=== PATIENT | male | born 1960 | race Caucasian/White ===

== ENCOUNTER 2018-03-10 00:42 | Emergency (ER) | payer OTHER ==
[2018-03-10] MEDS ORDERED: LIDOCAINE 2% MPF 5 ML VIAL ONE (01:26)
--- NOTE | 2018-03-10 01:49 | EDPHYS ---
Physician Documentation [facility] Name: Kj Ortiz Sr Age: 57 yrs Sex: Male : 1960 Arrival Date: 03/10/2018 Time: 00:43 Bed 16 Private MD: ED Physician Santiago Loo HPI: 03/10 01:48 This 57 yrs old Male presents to ER via Ambulatory with complaints of jr8 Laceration To Hand. 01:48 The patient has a laceration related to: working, occurred at home. Onset: The jr8 symptoms/episode began/occurred acutely, today. Associated signs and symptoms: The patient has no apparent associated signs or symptoms. The patient has not experienced similar symptoms in the past. The patient has not recently seen a physician. Was working on motor and cut left hand. Historical: - Allergies: 01:06 No Known Allergies; ak1 - Home Meds: 01:06 [place] 10-325 mg Oral tab 1 tab every 6 hours [Active]; hydroxyzine HCl 50 mg Oral tab 1 ak1 tab 3 times daily [Active]; calcium 1000mg daily [Active]; omeprazole 60mg Oral [Active]; ranitidine HCl 75 mg Oral tab 1 tab once daily [Active]; gabapentin oral 1200 mg oral 3 times per day [Active]; Cymbalta 60 mg oral cpDR 1 cap twice daily [Active]; amitriptyline 150 mg Oral tab 1 tab once daily [Active]; trazodone 150 mg Oral tab 1 tab 2 times per day [Active]; diclofenac sodium 50 mg oral TbEC 1 tab 2 times per day [Active]; - PSHx: 01:06 back surgery x's 2; left shoulder; bilateral feet; bilateral hands; ak1 - Immunization history:: Adult Immunizations unknown, Last tetanus immunization: < 5 years ago. - Social history:: Smoking status: Patient uses tobacco products, smokes one-half pack cigarettes per day. - Ebola Screening: : No symptoms or risks identified at this time. ROS: 01:48 Eyes: Negative for injury, pain, redness, and discharge, ENT: Negative for injury, jr8 pain, and discharge, Neck: Negative for injury, pain, and swelling, Cardiovascular: Negative for chest pain, palpitations, and edema, Respiratory: Negative for shortness of breath, cough, wheezing, and pleuritic chest pain, Abdomen/GI: Negative for abdominal pain, nausea, vomiting, diarrhea, and constipation, Back: Negative for injury and pain, MS/Extremity: Negative for injury and deformity, Neuro: Negative for headache, weakness, numbness, tingling, and seizure. 01:48 Skin: Positive for laceration(s), of the left hand. Exam: 01:48 Cardiovascular: Regular rate and rhythm with a normal S1 and S2. No gallops, murmurs, jr8 or rubs. Normal PMI, no JVD. No pulse deficits. Respiratory: Lungs have equal breath sounds bilaterally, clear to auscultation and percussion. No rales, rhonchi or wheezes noted. No increased work of breathing, no retractions or nasal flaring. Back: No spinal tenderness. No costovertebral tenderness. Full range of motion. MS/ Extremity: Pulses equal, no cyanosis. Neurovascular intact. Full, normal range of motion. Neuro: Awake and alert, GCS 15, oriented to person, place, time, and situation. Cranial nerves II-XII grossly intact. Motor strength 5/5 in all extremities. Sensory grossly intact. Cerebellar exam normal. Normal gait. 01:48 Skin: injury, laceration(s), the wound is approximately 3 cm(s), with a depth of .5 cm(s), of the dorsal left hand, that can be described as irregular, with mild bleeding. Vital Signs: 00:57 BP 128 / 86; Pulse 102; Resp 18; Temp 98.2; Pulse Ox 95% on R/A; Weight 90.72 kg (R); ak1 Height 5 ft. 8 in. (172.72 cm); Pain 2/10; 00:57 Body Mass Index 30.41 (90.72 kg, 172.72 cm) ak1 Laceration: 01:48 Wound Repair of 3cm ( 1.2in ) subcutaneous laceration to left hand. Irregularly jr8 shaped.. Minimal bleeding noted.. Distal neuro/vascular/tendon intact. Anesthesia: Local anesthetic administered with 3 mls of 1% lidocaine. Wound prep: Extensive cleansing with betadine, Wound margin revised minimally, Wound explored extensively. Skin closed with 5 4-0 Prolene using interrupted sutures and sterile technique. Patient tolerated well. MDM: 01:04 Patient medically screened. jr8 01:48 Data reviewed: vital signs, nurses notes, and as a result, I will discharge patient. jr8 Data interpreted: Pulse oximetry: on room air is 95 %. Interpretation: normal. Counseling: I had a detailed discussion with the patient and/or guardian regarding: the historical points, exam findings, and any diagnostic results supporting the discharge/admit diagnosis, the need for outpatient follow up, a family practitioner, to return to the emergency department if symptoms worsen or persist or if there are any questions or concerns that arise at home. Administered Medications: No medications were administered Disposition: 07:01 Co-signature as Attending Physician, Santiago Loo MD I agree with the assessment and odell plan of care. Disposition: 03/10/18 01:48 Discharged to Home. Impression: Laceration without foreign body of left hand. - Condition is Stable. - Discharge Instructions: Laceration Care, Adult. - Medication Reconciliation Form, Thank You Letter, Antibiotic Education, Prescription Opioid Use form. - Follow up: Private Physician; When: 7 - 10 days; Reason: Wound Recheck, Recheck today's complaints, Continuance of care, Staple/Suture removal, Re-evaluation by your physician. - Problem is new. - Symptoms have improved. Signatures: Santiago Loo MD MD cha Roszak, Josh, PA PA jr8 Gretchen Haines RN RN ak1 Sukhdev Hilario RN RN rv Corrections: (The following items were deleted from the chart) 02:05 01:48 03/10/2018 01:48 Discharged to Home. Impression: Laceration without foreign body rv of left hand. Condition is Stable. Forms are Medication Reconciliation Form, Thank You Letter, Antibiotic Education, Prescription Opioid Use. Follow up: Private Physician; When: 7 - 10 days; Reason: Wound Recheck, Recheck today's complaints, Continuance of care, Staple/Suture removal, Re-evaluation by your physician. Problem is new. Symptoms have improved. jr8
--- NOTE | 2018-03-10 01:49 | ER ---
Nurse's Notes [facility] Name: Kj Ortiz Sr Age: 57 yrs Sex: Male : 1960 Arrival Date: 03/10/2018 Time: 00:43 Bed 16 Private MD: Diagnosis: Laceration without foreign body of left hand Presentation: 03/10 00:58 Presenting complaint: Patient states: lac to top of left hand at 0025 while working in [employer] shop. 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 bleeding controlled. Transition of care: patient was not received from another setting of care. Complicating Factors: There are no complicating factors for this patient. Onset of symptoms was March 10, 2018. Risk Assessment: Do you want to hurt yourself or someone else? Patient reports no desire to harm self or others. Initial Sepsis Screen: Does the patient meet any 2 criteria? No. Patient's initial sepsis screen is negative. Does the patient have a suspected source of infection? No. Patient's initial sepsis screen is negative. Care prior to arrival: None. 00:58 Method Of Arrival: Ambulatory ak1 00:58 Acuity: KRISTAN 4 ak1 Triage Assessment: 01:06 General: Appears in no apparent distress. Behavior is calm, cooperative. Pain: ak1 Complains of pain in left hand. EENT: No signs and/or symptoms were reported regarding the EENT system. Neuro: No deficits noted. Cardiovascular: No deficits noted. Respiratory: No deficits noted. GI: No signs and/or symptoms were reported involving the gastrointestinal system. : No signs and/or symptoms were reported regarding the genitourinary system. Derm: No signs and/or symptoms reported regarding the dermatologic system. Musculoskeletal: No signs and/or symptoms reported regarding the musculoskeletal system. Injury Description: Laceration sustained to left hand is jagged, 0.5 to 2.5 cm long, not bleeding, was sustained 1-2 hours ago. Historical: - Allergies: 01: No Known Allergies; ak1 - Home Meds: 01:06 [place] 10-325 mg Oral tab 1 tab every 6 hours [Active]; hydroxyzine HCl 50 mg Oral tab 1 ak1 tab 3 times daily [Active]; calcium 1000mg daily [Active]; omeprazole 60mg Oral [Active]; ranitidine HCl 75 mg Oral tab 1 tab once daily [Active]; gabapentin oral 1200 mg oral 3 times per day [Active]; Cymbalta 60 mg oral cpDR 1 cap twice daily [Active]; amitriptyline 150 mg Oral tab 1 tab once daily [Active]; trazodone 150 mg Oral tab 1 tab 2 times per day [Active]; diclofenac sodium 50 mg oral TbEC 1 tab 2 times per day [Active]; - PSHx: 01:06 back surgery x's 2; left shoulder; bilateral feet; bilateral hands; ak1 - Immunization history:: Adult Immunizations unknown, Last tetanus immunization: < 5 years ago. - Social history:: Smoking status: Patient uses tobacco products, smokes one-half pack cigarettes per day. - Ebola Screening: : No symptoms or risks identified at this time. Screenin:07 Abuse screen: Denies threats or abuse. Denies injuries from another. Nutritional ak1 screening: No deficits noted. Tuberculosis screening: No symptoms or risk factors identified. Fall Risk None identified. Assessment: 01:00 General: Appears in no apparent distress. comfortable, Behavior is calm, cooperative. rv Pain: Complains of pain in left hand. Neuro: Level of Consciousness is awake, alert, obeys commands, Oriented to person, place, time, situation. Cardiovascular: Capillary refill < 3 seconds. Respiratory: Airway is patent. GI: No signs and/or symptoms were reported involving the gastrointestinal system. : No signs and/or symptoms were reported regarding the genitourinary system. EENT: No signs and/or symptoms were reported regarding the EENT system. Derm: Wound noted left hand. 01:00 Injury Description: Laceration sustained to left hand. rv Vital Signs: 00:57 BP 128 / 86; Pulse 102; Resp 18; Temp 98.2; Pulse Ox 95% on R/A; Weight 90.72 kg (R); ak1 Height 5 ft. 8 in. (172.72 cm); Pain 2/10; 00:57 Body Mass Index 30.41 (90.72 kg, 172.72 cm) ak1 ED Course: 00:43 Patient arrived in ED. ds1 00:57 Arm band placed on Patient placed in an exam room, on a stretcher, Patient notified of ak1 wait time. 01:00 Triage completed. ak1 01:04 Michael Montoya PA is PHCP. jr8 01:04 Santiago Loo MD is Attending Physician. jr8 01:07 Patient has correct armband on for positive identification. ak1 02:03 Assist provider with laceration repair on left hand that was between 2.6 to 7.5 cm rv using sutures. Set up tray. Performed by Michael GOMEZ Dressed with 4X4s, Patient tolerated well. 02:04 Patient did not have IV access during this emergency room visit. rv Administered Medications: No medications were administered Outcome: 01:48 Discharge ordered by . jr8 02:04 Discharged to home ambulatory. rv 02:04 Condition: good 02:04 Discharge instructions given to patient, Instructed on discharge instructions, wound care. 02:05 Patient left the ED. rv Signatures: Yulisa Woody ds1 Michael Montoya PA PA jr8 Gretchen Haines, RN RN ak1 Sukhdev Hilario RN RN rv
[2018-03-10 02:56] VITALS: BP 128/86; TEMP 98.2; O2SAT 95
== END 2018-03-10 02:05 | disposition home or self-care (01) ==
LOC: ER 00:42
PROC: 0JQK0ZZ Repair Left Hand Subcutaneous Tissue and Fascia, Open Approach (ICD-10-PCS; principal; 2018-03-10)
DX: S61.412A Laceration without foreign body of left hand, initial encounter (principal); F17.210 Nicotine dependence, cigarettes, uncomplicated; W45.8XXA Other foreign body or object entering through skin, initial encounter; Y93.89 Activity, other specified; Y92.009 Unspecified place in unspecified non-institutional (private) residence as the place of occurrence of the external cause
CPT/HCPCS: 99283

== ENCOUNTER 2018-04-09 23:51 | Inpatient (IN) | payer OTHER ==
[2018-04-10] MEDS ORDERED: ALBUTEROL 2.5 MG/3 ML NEB SOL ONE ×2 (00:06→07:47)
[2018-04-10] MEDS ORDERED: NA CHLORIDE 0.9% 1,000 ML ONE (00:19)
[2018-04-10] MEDS ORDERED: FUROSEMIDE 40 MG/4 ML VIAL ONE (00:26)
[2018-04-10 00:30] LABS: Absolute Lymphocytes (CBC) 0.7 K/uL (0.7-4.9); Absolute Monocytes 0.6 K/uL (0.1-1.3); Basophils % 0.1 % (0-1.3); Eosinophils % 0.1 % (0-4.4); Hematocrit 38.6 % (39.6-49.0); Lymphocytes % 3.8 % (15.3-44.8); MCH 30.9 pg (27.0-35.0); MCV 91.1 fL (80-100); MPV 6.8 fL (7.6-11.3); Monocytes % 3.6 % (3.3-12.3); RBC Red Blood Cell Count 4.24 M/uL (4.33-5.43)
[2018-04-10 00:32] LABS: Protime INR 0.92
[2018-04-10 00:47] LABS: ALT/SGPT 24 U/L (12-78); AST/SGOT 31 U/L (15-37); Albumin 3.7 g/dL (3.4-5.0); Alkaline Phosphatase 52 U/L (45-117); Amylase Level 20 U/L (25-115); BUN Blood Urea Nitrogen 15 mg/dL (7-18); Bicarbonate 28 mmol/L (21-32); Bilirubin Direct < 0.1 mg/dL (0-0.2); Bilirubin Total 0.3 mg/dL (0.2-1.0); CKMB Creatine Kinase MB 2.8 ng/mL (0.3-3.6); Creatine Phosphokinase 211 U/L (39-308); Glucose Level 181 mg/dL (74-106); Lipase 72 U/L (73-393); Magnesium 2.1 mg/dL (1.8-2.4); NT PRO-BNP 241 pg/mL (<125); Protein, Total 7.1 g/dL (6.4-8.2); Sodium Level 141 mmol/L (136-145)
[2018-04-10 01:02] LABS: Arterial Blood Carboxyhemoglob 3.2 % (0-1.5); Blood Gas Oxyhemoglobin 87.5 % (94-97); Blood O2 Saturation 91.4 % (92-98.5)
[2018-04-10 01:40] LABS: Blood Morphology Comment NOT SEEN (NOT SEEN); Platelet Estimate ADEQ
[2018-04-10 01:41] LABS: Urine Blood TRACE (NEG); Urine Glucose TRACE (NEG); Urine Protein NEGATIVE (NEG); Urine Specific Gravity 1.015 (1.005-1.030)
[2018-04-10] MEDS ORDERED: ONDANSETRON 4 MG/2 ML VIAL ONE (01:52)
[2018-04-10] MEDS ORDERED: MORPHINE 4 MG/ML SYR ONE ×2 (01:52→05:53)
--- NOTE | 2018-04-10 03:05 | EDPHYS ---
Physician Documentation [facility] Name: Kj Ortiz Sr Age: 57 yrs Sex: Male : 1960 Arrival Date: 04/09/2018 Time: 23:52 Bed 3 Private MD: ED Physician Vazquez Penn HPI: 04/10 00:03 This 57 yrs old Male presents to ER via Ambulatory with complaints of pkl Breathing Difficulty. 00:03 The patient has shortness of breath at rest. Onset: The symptoms/episode began/occurred pkl just prior to arrival, 3 hour(s) ago. Patient had rotator cuff surgery right shoulder earlier this morning at [facility]. Historical: - Allergies: 00:07 No Known Allergies; ea 00:12 No Known Allergies; bb - Home Meds: 00:12 amitriptyline 150 mg Oral tab 1 tab once daily [Active]; diclofenac sodium 50 mg Oral bb TbEC 1 tab 2 times per day [Active]; docusate sodium 100 mg Oral tab 1 tab 2 times per day [Active]; duloxetine 60 mg oral cpDR 1 cap twice a day [Active]; gabapentin 1200 mg Oral 3 times per day [Active]; [place] 10-325 mg Oral tab 1 tab every 4 hours [Active]; hydroxyzine HCl 50 mg Oral tab 1 tab 3 times daily [Active]; lidocaine 5 % topical ptmd 1 patch twice a day [Active]; methocarbamol 750 mg Oral tab 1 tab four times a day [Active]; nicotine gum [Active]; omeprazole 20 mg oral TbEC daily [Active]; pravastatin 40 mg oral tab 1 tab once daily [Active]; psyllium oral oral [Active]; ranitidine HCl 150 mg oral tab 1 tab nightly [Active]; sildenafil 50 mg prior to intercourse oral tab [Active]; trazodone 150 mg Oral tab 1 tab nightly [Active]; - PMHx: 00:15 None; bp - PSHx: 00:07 back surgery x's 2; left shoulder; bilateral feet; bilateral hands; ea - Immunization history:: Adult Immunizations up to date. - Social history:: Smoking status: Patient uses tobacco products, pt reports smoking about 6 cigarettes per day. - Ebola Screening: : No symptoms or risks identified at this time. ROS: 00:03 Eyes: Negative for injury, pain, redness, and discharge, ENT: Negative for injury, pkl pain, and discharge, Neck: Negative for injury, pain, and swelling, Cardiovascular: Negative for chest pain, palpitations, and edema. 00:03 Respiratory: Positive for shortness of breath, at rest. 00:03 Abdomen/GI: Negative for abdominal pain, nausea, vomiting, and diarrhea. 00:03 Back: Negative for acute changes. 00:03 : Negative for urinary symptoms. 00:03 MS/extremity: Negative for acute changes. 00:03 Skin: Negative for rash. 00:03 Neuro: Negative for altered mental status. Exam: 00:03 Head/Face: Normocephalic, atraumatic. Eyes: Pupils equal round and reactive to light, pkl extra-ocular motions intact. Lids and lashes normal. Conjunctiva and sclera are non-icteric and not injected. Cornea within normal limits. Periorbital areas with no swelling, redness, or edema. ENT: Nares patent. No nasal discharge, no septal abnormalities noted. Tympanic membranes are normal and external auditory canals are clear. Oropharynx with no redness, swelling, or masses, exudates, or evidence of obstruction, uvula midline. Mucous membranes moist. Neck: Trachea midline, no thyromegaly or masses palpated, and no cervical lymphadenopathy. Supple, full range of motion without nuchal rigidity, or vertebral point tenderness. No Meningismus. Chest/axilla: Normal chest wall appearance and motion. Nontender with no deformity. No lesions are appreciated. Cardiovascular: Regular rate and rhythm with a normal S1 and S2. No gallops, murmurs, or rubs. Normal PMI, no JVD. No pulse deficits. 00:03 Respiratory: moderate respiratory distress is noted, Respirations: labored breathing, that is moderate, Breath sounds: rales, that are moderate, are scattered. 00:03 Abdomen/GI: Bowel sounds: normal, Palpation: abdomen is soft and non-tender, in all quadrants. 00:03 Back: Exam negative for acute changes. 00:03 : Exam negative for acute changes. 00:03 Musculoskeletal/extremity: Exam is negative for acute changes. 00:03 Skin: Exam negative for rash. 00:03 Neuro: Orientation: is normal, Mentation: is normal, Cranial nerves: grossly normal, Motor: is normal. Vital Signs: 00:00 Pulse Ox 74% on R/A; bb 00:05 BP 135 / 74; Pulse 121; Resp 26; Temp 98.7; Pulse Ox 99% on Non-rebreather mask; Weight ea 90.72 kg; Height 5 ft. 8 in. (172.72 cm); Pain 7/10; 02:13 BP 113 / 69; Pulse 100; Resp 18; Pulse Ox 93% on 40% BiPAP; ea 03:45 BP 119 / 74; Pulse 90; Resp 17; Pulse Ox 95% on 40% BiPAP; ea 04:12 BP 127 / 77; Pulse 18; Resp 89; Pulse Ox 94% on 40% BiPAP; ea 00:05 Body Mass Index 30.41 (90.72 kg, 172.72 cm) ea MDM: 04/09 23:59 Medical screening is not applicable. 04/10 03:01 Data reviewed: vital signs, nurses notes, lab test result(s), EKG, radiologic studies, pkl CT scan, plain films. 04/09 23:59 Order name: Amylase, Serum; Complete Time: 00:52 v 04/09 23:59 Order name: Blood Culture Adult (2) 04/09 23:59 Order name: BMP; Complete Time: 00:52 04/09 23:59 Order name: CBC with Diff; Complete Time: 01:41 04/09 23:59 Order name: Ckmb; Complete Time: 00:52 04/09 23:59 Order name: CPK; Complete Time: 00:52 04/09 23:59 Order name: D-Dimer; Complete Time: 00:46 04/09 23:59 Order name: Hepatic Function; Complete Time: 00:52 04/09 23:59 Order name: Lipase; Complete Time: 00:52 04/09 23:59 Order name: Magnesium; Complete Time: 00:52 04/09 23:59 Order name: NT PRO-BNP; Complete Time: 00:52 04/09 23:59 Order name: PT-INR; Complete Time: 00:46 04/09 23:59 Order name: Ptt, Activated; Complete Time: 00:46 v 04/09 23:59 Order name: Troponin (emerg Dept Use Only); Complete Time: 00:52 v 08/10 00:01 Order name: ABG; Complete Time: 01:06 pkl 10 00:02 Order name: XRAY CXR (1 view); Complete Time: 19:03 pkl 10 00:31 Order name: Manual Differential; Complete Time: 01:41 EDMS 04/10 00:47 Order name: CT Chest For PE Angio; Complete Time: 19:03 pkl 04/10 01:03 Order name: Urine Dipstick--Ancillary (enter results); Complete Time: 01:44 ms 10 01:42 Order name: Lactate; Complete Time: 03:05 pkl 04/10 01:42 Order name: Procalcitonin; Complete Time: 06:41 pkl 10 06:34 Order name: CBC with Automated Diff; Complete Time: 19:03 EDMS 10 06:46 Order name: Basic Metabolic Panel; Complete Time: 19:03 EDMS 04/10 06:49 Order name: Lactate Sepsis 2 HR Follow-up; Complete Time: 19:03 EDMS 10 06:55 Order name: ABG Arterial Blood Gas; Complete Time: 19:03 EDMS 10 07:37 Order name: Manual Differential; Complete Time: 19:03 EDMS 04/09 23:59 Order name: EKG; Complete Time: 00:01 kav 04/09 23:59 Order name: Cardiac monitoring; Complete Time: 00:24 kav 04/09 23:59 Order name: EKG - Nurse/Tech; Complete Time: 00:24 kav 04/09 23:59 Order name: IV Saline Lock; Complete Time: 00:24 kav 04/09 23:59 Order name: Labs collected and sent; Complete Time: 00:24 kav 04/09 23:59 Order name: O2 Per Protocol; Complete Time: 00:24 kav 04/09 23:59 Order name: O2 Sat Monitoring; Complete Time: 00:24 kav 04/09 23:59 Order name: Urine Dipstick-Ancillary (obtain specimen); Complete Time: 02:23 kav Administered Medications: 00:00 Drug: Albuterol 2.5 mg Route: Inhalation; bp 00:12 CANCELLED (Patient Refused): NS 0.9% 1000 ml IV at 1000 ml once pkl 00:20 Drug: Albuterol - atroVENT (3:1) (2.5 mg - 0.5 mg) 3 ml Route: Nebulizer; ea 00:35 Follow up: Response: No adverse reaction; No adverse reaction, pt reports some relief ea of symptoms 00:20 Drug: NS 0.9% 1000 ml Route: IV; Rate: 100 ml/hr; Site: left antecubital; ea 00:22 Follow up: IV Status: Order to discontinue infusion ea 00:23 Drug: Lasix 80 mg Route: IVP; Site: left antecubital; ea 00:45 Follow up: Urine output 650 ml; Response: No adverse reaction ea 01:56 Drug: morphine 2 mg Route: IVP; Site: left antecubital; ea 02:23 Follow up: Response: No adverse reaction; Pain is decreased ea 01:56 Drug: Zofran 4 mg Route: IVP; Site: left antecubital; ea 02:23 Follow up: Response: No adverse reaction; Pain is decreased ea Disposition: 03:01 Critical Care:. pkl Disposition: 04/10/18 03:04 Hospitalization ordered by Adriana Gloria for Inpatient Admission. Preliminary diagnosis is Acute dyspnea. Bilateral pneumonia. Hypoxia. S/P Right shoulder rotator cuff surgery. - Bed requested for Intensive Care Unit. - Status is Inpatient Admission. sv - Condition is Stable. - Problem is new. - Symptoms have improved. UTI on Admission? No Signatures: Dispatcher [employer] EDMS Milli Esteban RN RN kl Verde, Stephanie, RN RN sv Lam, Pin, MD MD pkl Vern, Katherine, LIAISON PLANNER LIAISON PLANNER Jennifer Dorado RN RN bb Antunez, Elena, RN RN ea Peltier, Brian RN RN bp Corrections: (The following items were deleted from the chart) 00:12 00:00 NS 0.9% 1000 ml IV at 1000 ml once ordered. jak pkmoises 03:27 03:04 Hospitalization Ordered by Adriana Gloria MD for Inpatient Admission. Preliminary pkl diagnosis is Acute dyspnea. Bilateral pneumonia. Hypoxia. S/P Right shoulder rotator cuff surgery. Bed requested for Telemetry/MedSurg (Inpatient). Status is Inpatient Admission. Condition is Stable. Problem is new. Symptoms have improved. UTI on Admission? No. pkl 06:23 03:27 04/10/2018 03:04 Hospitalization Ordered by Adriana Gloria MD for Inpatient kl Admission. Preliminary diagnosis is Acute dyspnea. Bilateral pneumonia. Hypoxia. S/P Right shoulder rotator cuff surgery. Bed requested for Intensive Care Unit. Status is Inpatient Admission. Condition is Stable. Problem is new. Symptoms have improved. UTI on Admission? No. pkl 08:18 06:23 04/10/2018 03:04 Hospitalization Ordered by Adriana Gloria MD for Inpatient sv Admission. Preliminary diagnosis is Acute dyspnea. Bilateral pneumonia. Hypoxia. S/P Right shoulder rotator cuff surgery. Bed requested for Intensive Care Unit. Status is Inpatient Admission. Condition is Stable. Problem is new. Symptoms have improved. UTI on Admission? No. kl
--- NOTE | 2018-04-10 03:05 | ER ---
Nurse's Notes [facility] Name: Kj Ortiz Sr Age: 57 yrs Sex: Male : 1960 Arrival Date: 04/09/2018 Time: 23:52 Bed 3 Private MD: Diagnosis: Acute dyspnea. Bilateral pneumonia. Hypoxia. S/P Right shoulder rotator cuff surgery Presentation: 04/10 00:00 Presenting complaint: Patient states: he had rotator cuff repair this morning at the [place] [facility] and is having shortness of breath. Transition of care: patient was not received from another setting of care. Onset of symptoms was April 10, 2018. Risk Assessment: Do you want to hurt yourself or someone else? Patient reports no desire to harm self or others. Initial Sepsis Screen: Does the patient meet any 2 criteria? No. Patient's initial sepsis screen is negative. Does the patient have a suspected source of infection? No. Patient's initial sepsis screen is negative. Care prior to arrival: None. 00:00 Method Of Arrival: Ambulatory bb 00:00 Acuity: KRISTAN 2 bb Triage Assessment: 00:07 General: Appears uncomfortable, Behavior is restless. Pain: Complains of pain in back, ea anterior aspect of left upper chest, left breast, anterior aspect of right shoulder and right knee. Neuro: Level of Consciousness is awake, alert, obeys commands, Oriented to person, place, time. Respiratory: Reports shortness of breath at rest Airway is patent Respiratory effort is even, unlabored, Respiratory pattern is regular, symmetrical, Breath sounds are diminished bilaterally. Onset: The symptoms/episode began/occurred Pt reports he felt short of breath after his surgery this AM, reports he was released and as the day progressed pt reports he started feeling more short of breath. , the patient has moderate shortness of breath. Derm: Skin is pink, warm \T\ dry. Historical: - Allergies: 00:07 No Known Allergies; ea 00:12 No Known Allergies; bb - Home Meds: 00:12 amitriptyline 150 mg Oral tab 1 tab once daily [Active]; diclofenac sodium 50 mg Oral bb TbEC 1 tab 2 times per day [Active]; docusate sodium 100 mg Oral tab 1 tab 2 times per day [Active]; duloxetine 60 mg oral cpDR 1 cap twice a day [Active]; gabapentin 1200 mg Oral 3 times per day [Active]; [place] 10-325 mg Oral tab 1 tab every 4 hours [Active]; hydroxyzine HCl 50 mg Oral tab 1 tab 3 times daily [Active]; lidocaine 5 % topical ptmd 1 patch twice a day [Active]; methocarbamol 750 mg Oral tab 1 tab four times a day [Active]; nicotine gum [Active]; omeprazole 20 mg oral TbEC daily [Active]; pravastatin 40 mg oral tab 1 tab once daily [Active]; psyllium oral oral [Active]; ranitidine HCl 150 mg oral tab 1 tab nightly [Active]; sildenafil 50 mg prior to intercourse oral tab [Active]; trazodone 150 mg Oral tab 1 tab nightly [Active]; - PMHx: 00:15 None; bp - PSHx: 00:07 back surgery x's 2; left shoulder; bilateral feet; bilateral hands; ea - Immunization history:: Adult Immunizations up to date. - Social history:: Smoking status: Patient uses tobacco products, pt reports smoking about 6 cigarettes per day. - Ebola Screening: : No symptoms or risks identified at this time. Screenin:25 Abuse screen: Denies threats or abuse. Nutritional screening: No deficits noted. ea Tuberculosis screening: No symptoms or risk factors identified. Fall Risk None identified. Assessment: 01:07 Reassessment: Pt taken to CT. ea 01:40 Reassessment: Patient and/or family updated on plan of care and expected duration. Pain ea level reassessed. Pt returned from CT. 01:45 Reassessment: Respiratory at bedside, pt respirations continued to be labored. v/o ea obtained to place pt on bipap, pt on bipap mask tolerating well Inspiratory pressure 14, expiratory pressure 7. Rate 12/40%. Pt O2 sat at 93%. 02:00 Reassessment: Patient and/or family updated on plan of care and expected duration. Pain ea level reassessed. Pt alert and oriented x 3, remains on bipap, tolerating well. Pt breathing easier, reports he is feeling better. 03:07 Reassessment: Patient and/or family updated on plan of care and expected duration. Pain ea level reassessed. Pt alert and oriented x 3. Remains on bipap, tolerating well. Pt respirations even and unlabored. Chest expansions even and symmetrical. No s/s of pain or discomfort. 04:11 Reassessment: Patient and/or family updated on plan of care and expected duration. Pain ea level reassessed. Pt resting with eyes closed, respirations even and unlabored, chest expansions even and symmetrical. No s/s of pain or discomfort noted at this time. Vital Signs: 00:00 Pulse Ox 74% on R/A; bb 00:05 BP 135 / 74; Pulse 121; Resp 26; Temp 98.7; Pulse Ox 99% on Non-rebreather mask; Weight ea 90.72 kg; Height 5 ft. 8 in. (172.72 cm); Pain 7/10; 02:13 BP 113 / 69; Pulse 100; Resp 18; Pulse Ox 93% on 40% BiPAP; ea 03:45 BP 119 / 74; Pulse 90; Resp 17; Pulse Ox 95% on 40% BiPAP; ea 04:12 BP 127 / 77; Pulse 18; Resp 89; Pulse Ox 94% on 40% BiPAP; ea 00:05 Body Mass Index 30.41 (90.72 kg, 172.72 cm) ea ED Course: 04/09 23:52 Patient arrived in ED. es 23:59 Jackelin Marin FNP is PHCP. kav 23:59 Vazquez Penn MD is Attending Physician. kav 04/10 00:00 Saúl Duran, RN is Primary Nurse. bp 00:00 Patient has correct armband on for positive identification. Bed in low position. Call ea light in reach. Side rails up X2. 00:00 Arm band placed on left wrist. ea 00:02 Triage completed. bb 00:02 Inserted saline lock: 20 gauge in left antecubital area, using aseptic technique. Blood jb5 collected. 00:14 X-ray completed. Portable x-ray completed in exam room. Patient tolerated procedure kw well. 00:15 XRAY CXR (1 view) In Process Unspecified. EDMS 00:25 Amylase, Serum Sent. jb5 00:25 Blood Culture Adult (2) Sent. jb5 00:25 BMP Sent. jb5 00:25 CBC with Diff Sent. jb5 00:26 Ckmb Sent. jb5 00:26 CPK Sent. jb5 00:26 D-Dimer Sent. jb5 00:26 Hepatic Function Sent. jb5 00:26 Lipase Sent. jb5 00:26 Magnesium Sent. jb5 00:26 NT PRO-BNP Sent. jb5 00:26 PT-INR Sent. jb5 00:26 Ptt, Activated Sent. jb5 00:26 Troponin (emerg Dept Use Only) Sent. jb5 00:48 Frances cath inserted, using sterile technique, 16 Fr., by me, balloon inflated, to ea gravity drainage, urine specimen collected. 01:41 CT Chest For PE Angio In Process Unspecified. EDMS 03:02 Adriana Gloria MD is Hospitalizing Provider. pkl 03:25 No provider procedures requiring assistance completed. Patient admitted, IV remains in ea place. Administered Medications: 00:00 Drug: Albuterol 2.5 mg Route: Inhalation; bp 00:12 CANCELLED (Patient Refused): NS 0.9% 1000 ml IV at 1000 ml once pkl 00:20 Drug: Albuterol - atroVENT (3:1) (2.5 mg - 0.5 mg) 3 ml Route: Nebulizer; ea 00:35 Follow up: Response: No adverse reaction; No adverse reaction, pt reports some relief ea of symptoms 00:20 Drug: NS 0.9% 1000 ml Route: IV; Rate: 100 ml/hr; Site: left antecubital; ea 00:22 Follow up: IV Status: Order to discontinue infusion ea 00:23 Drug: Lasix 80 mg Route: IVP; Site: left antecubital; ea 00:45 Follow up: Urine output 650 ml; Response: No adverse reaction ea 01:56 Drug: morphine 2 mg Route: IVP; Site: left antecubital; ea 02:23 Follow up: Response: No adverse reaction; Pain is decreased ea 01:56 Drug: Zofran 4 mg Route: IVP; Site: left antecubital; ea 02:23 Follow up: Response: No adverse reaction; Pain is decreased ea Output: 00:45 Urine: 650ml; Total: 650ml. ea 02:12 Urine: 600ml (Frances); Total: 1250ml. ea Outcome: 03:04 Decision to Hospitalize by Provider. pkl 08:15 Admitted to ICU accompanied by nurse, accompanied by tech, via stretcher, room 7, with sv oxygen, on monitor, with chart, Report called to Santos GIMENEZ 08:15 Condition: stable 08:15 Instructed on the need for admit. 08:18 Patient left the ED. sv Signatures: Dispatcher [employer] Mohini Ann, RN RN Vazquez Burrell MD MD pkl Vern, Katherine, FNP FNP kav Salyer, Edna es Ballard, Brenda, RN RN Corrie Carlos Jennifer jb5 Angelina Winter RN RN Saúl Traylor RN RN bp
[2018-04-10] MEDS ORDERED: PIPER/TAZO/NS 3.375gm 3.375 GM/100 ML BAG IVPB ONE (03:43)
[2018-04-10] MEDS ORDERED: VANCOMYCIN 1 GM in NA CHLORIDE 0.9% 500 ML IVPB ONE (03:44)
[2018-04-10] MEDS ORDERED: PIPER/TAZO/NS 3.375gm 3.375 GM/100 ML BAG ONE (04:40)
[2018-04-10] MEDS ORDERED: VANCOMYCIN 0 GM/0 ML BAG ONE (04:40)
--- NOTE | 2018-04-10 04:41 | P.HP ---
Certification for Inpatient Patient admitted to: Inpatient With expected LOS: >2 Midnights Practitioner: I am a practitioner with admitting privileges, knowledge of patient current condition, hospital course, and medical plan of care. Services: Services provided to patient in accordance with Admission requirements found in Title 42 Section 412.3 of the Code of Federal Regulations Patient History Date of Service: 04/10/18 Reason for admission: Acute respiratory failure History of Present Illness: Mr Ortiz is a 67-year-old male with history of hypertension and chronic back pain, who had a rotator cuff surgery done at [place] this morning. He was doing well prior to the surgery. However after he was discharged home, started complaining with progressive shortness of breath and cough. No history of fever or chills. According to his , his symptom progressed very fast. At arrival to ED, his O2 sat was 74% in room air he was significantly dyspneic, afebrile, blood pressure 135/74. The patient was placed on non rebreathing mask initially, O2 sat increased to 99%. Then he was placed on BiPAP. Laboratory work remarkable for leukocytosis 17.4 K, bandemia 15%, elevated lactate with normal procalcitonin. D-dimer was also elevated, subsequent CTA chest showed no PE, but bilateral patchy infiltrate consistent with pneumonia. Allergies NKDA Allergy (Uncoded 08/17/15 15:47) Unknown No Known Allergies Allergy (Uncoded 03/10/18 02:09) Unknown Home medications list reviewed: Yes - Past Medical/Surgical History -: Hypertension -: Chronic back pain -: Tobacco abuse -: Back surgery -: Showed surgery -: Had surgery -: Rotator cuff surgery - Family History Family History: Reviewed- Non-Contributory - Social History Smoking Status: Current every day smoker Counseled patient to stop smoking for: less than 10 minutes Smoking therapy provided: Yes Patient receptive to therapy: No Alcohol use: No CD- Drugs: No Place of Residence: Home Review of Systems 10-point ROS is otherwise unremarkable Physical Examination - Physical Exam General: Alert, In no apparent distress HEENT: Atraumatic, PERRLA, Mucous membr. moist/pink, EOMI, Sclerae nonicteric Neck: Supple, 2+ carotid pulse no bruit, No LAD, Without JVD or thyroid abnormality Respiratory: Diminished, Crackles/rales (Bilateral crackles) Cardiovascular: Regular rate/rhythm, Normal S1 S2 Gastrointestinal: Normal bowel sounds, No tenderness Musculoskeletal: No tenderness, Other (Right arm immobilizer in place) Integumentary: No rashes Neurological: Normal speech, Normal tone, Normal affect Lymphatics: No axilla or inguinal lymphadenopathy - Studies Laboratory Data (last 24 hrs) 04/09/18 23:59: PT 10.9, INR 0.92, APTT 29.0 04/09/18 23:59: WBC 17.4 H, Hgb 13.1 L, Hct 38.6 L, Plt Count 221 04/09/18 23:59: Sodium 141, Potassium 4.0, BUN 15, Creatinine 1.00, Glucose 181 H, Magnesium 2.1, Total Bilirubin 0.3, AST 31, ALT 24, Alkaline Phosphatase 52, Amylase 20 L, Lipase 72 L Assessment and Plan - Problems (Diagnosis) (1) Acute respiratory failure Current Visit: Yes Status: Acute (2) ARDS (adult respiratory distress syndrome) Current Visit: Yes Status: Acute (3) Bilateral pneumonia Current Visit: Yes Status: Acute Qualifiers: Pneumonia type: due to unspecified organism Lung location: unspecified part of lung Qualified Code(s): J18.9 - Pneumonia, unspecified organism (4) Tobacco abuse Current Visit: Yes Status: Acute (5) Chronic back pain Current Visit: Yes Status: Acute Qualifiers: Back pain location: low back pain Back pain laterality: unspecified Sciatica presence: unspecified whether sciatica present Qualified Code(s): M54.5 - Low back pain; G89.29 - Other chronic pain (6) Hypertension Current Visit: Yes Status: Acute Qualifiers: Hypertension type: essential hypertension Qualified Code(s): I10 - Essential (primary) hypertension - Plan Patient will be admitted to ICU due to acute respiratory failure secondary to ARDS. Consider aspiration pneumonia in context of his recent surgical procedure. Will continue with BiPAP, start empiric treatment with IV vancomycin and Zosyn, breathing treatments, will consult lapper. - Advance Directives Does patient have a Living Will: No Does patient have a Durable POA for Healthcare: No - Code Status/Comfort Care Code Status Assessed: Yes Code Status: Full Code Critical Care: Yes (30 min spent in critical care management)
[2018-04-10] MEDS ORDERED: ACETAMINOPHEN 500 MG TAB PO PRN (05:42)
[2018-04-10] MEDS ORDERED: NA CHLORIDE 0.9% 1,000 ML IV SCH (05:42)
[2018-04-10] MEDS ORDERED: Morphine 2 MG/2 ML SYR IV PRN (05:42)
[2018-04-10] MEDS ORDERED: ONDANSETRON 4 MG/2 ML VIAL IV PRN (05:42)
[2018-04-10] MEDS ORDERED: Morphine 2 MG/2 ML SYR IV ONE (05:45)
[2018-04-10] MEDS ORDERED: FUROSEMIDE 40 MG/4 ML VIAL IV ONE (05:46)
[2018-04-10] MEDS ORDERED: PIPER/TAZO/NS 3.375gm 3.375 GM/100 ML BAG IVPB SCH (06:00)
[2018-04-10] MEDS ORDERED: VANCOMYCIN 1.75 GM in NA CHLORIDE 0.9% 500 ML IVPB SCH (06:00)
[2018-04-10 06:30] LABS: Absolute Lymphocytes (CBC) 0.9 K/uL (0.7-4.9); Absolute Monocytes 0.7 K/uL (0.1-1.3); Absolute Neutrophil 14.4 K/uL (1.8-8.0); Basophils % 0.2 % (0-1.3); Eosinophils % 0.1 % (0-4.4); Hematocrit 37.1 % (39.6-49.0); Lymphocytes % 5.6 % (15.3-44.8); MCH 31.4 pg (27.0-35.0); MCV 90.8 fL (80-100); MPV 6.7 fL (7.6-11.3); Monocytes % 4.3 % (3.3-12.3); RBC Red Blood Cell Count 4.09 M/uL (4.33-5.43)
[2018-04-10 06:46] LABS: BUN Blood Urea Nitrogen 14 mg/dL (7-18); Bicarbonate 32 mmol/L (21-32); Glucose Level 121 mg/dL (74-106); Potassium 3.8 mmol/L (3.5-5.1); Sodium Level 140 mmol/L (136-145)
[2018-04-10 06:47] LABS: Blood Gas Oxyhemoglobin 92.1 % (94-97)
[2018-04-10 07:36] LABS: Blood Morphology Comment NOT SEEN (NOT SEEN); Platelet Estimate ADEQ
[2018-04-10] MEDS: IPRATROPIUM BROM 0.5MG/2.5ML NEB SCH ×4 (07:45→19:38)
[2018-04-10] MEDS: ALBUTEROL 2.5 MG/3 ML NEB SOL NEB SCH ×5 (07:45→23:15)
[2018-04-10] MEDS ORDERED: IPRATROPIUM BROM 0.5MG/2.5ML ONE (07:47)
--- NOTE | 2018-04-10 08:19 | EKG ---
Test Date: 2018-04-10 Test Time: 00:17:00 [place] Location Manager: ANNMARIE MEASUREMENT RESULTS: Intervals: Rate: 114 [place]: 156 QRSD: 98 QT: 328 QTc: 452 [place]: P: 44 [place]: 156 QRS: -5 T: 48 INTERPRETIVE STATEMENTS: Sinus tachycardia Otherwise normal ECG Compared to ECG 08/17/2015 14:14:01 No significant changes Electronically Signed On 04-10-18 08:18:22 CDT by Mathieu Helm
--- NOTE | 2018-04-10 08:42 | RAD REPORT ---
EXAM DESCRIPTION: CT - Chest For Pe Angio - 04/10/2018 4:27 am CLINICAL HISTORY: Chest pain COMPARISON: None. TECHNIQUE: Dynamically enhanced axial 3 mm thick images of the chest were obtained during administra tion of <100> mL Isovue 370 IV contrast. Coronal and oblique reconstruction images were generated and reviewed. Exam utilizes a protocol for optimal evaluation of pulmonary arterial tree.A preliminary r eport was generated by virtual radiologic reviewed prior to this dictation Maximum intensity projections 3D imaging was utilized All CT scans are performed using dose optimization technique as appropriate and may include automated exposure control or mA/KV adjustment according to patient size. FINDINGS: The opacification of the pulmonary arteries is very suboptimal probably secondary to respi ratory artifact. A gross central or pulmonary embolus is not seen. The main pulmonary artery is enlar ged A thoracic aortic aneurysm is not noted. A pleural effusion is not seen. A pericardial effusion is not seen. Moderate bilateral alveolar lung opacities are present. Right middle and right lower lobe consolidati ons are seen. IMPRESSION: Limited exam without visualization of a gross central pulmonary embolus Moderate bilateral alveolar opacities may represent pulmonary edema or pneumonia Right middle and right lower lobe consolidation may represent atelectasis or pneumonia Dilated central pulmonary artery may indicate pulmonary arterial hypertension
--- NOTE | 2018-04-10 08:44 | RAD REPORT ---
EXAM DESCRIPTION: Jeanmarie Single View04/10/2018 12:18 am CLINICAL HISTORY: Shortness of breath COMPARISON: 2014 FINDINGS: Moderate bilateral pulmonary opacities are present. The heart is mildly enlarged. Right b asilar consolidation is seen IMPRESSION: Moderate bilateral pulmonary opacities may represent pulmonary edema or pneumonia Right basilar consolidation may indicate atelectasis or pneumonia
[2018-04-10] MEDS: MORPHINE 2 MG/ML SYR IV PRN ×3 (09:29→21:27)
[2018-04-10] MEDS: VANCOMYCIN 1.75 GM in NA CHLORIDE 0.9% 500 ML IVPB SCH ×2 (09:30→20:26)
[2018-04-10] MEDS: PIPER/TAZO/NS 3.375gm 3.375 GM/100 ML BAG IVPB SCH ×2 (09:31→16:51)
[2018-04-10] MEDS: ENOXAPARIN 40 MG/0.4 ML SQ SCH (09:31)
[2018-04-10] MEDS ORDERED: hydrOXYzine HCl 25 MG TAB PO PRN (10:32)
[2018-04-10] MEDS ORDERED: HYDROCODONE/APAP 10/325 TAB PO PRN (10:32)
[2018-04-10] MEDS ORDERED: FUROSEMIDE 20 MG/ 2ML VIAL IV ONE (12:03)
--- NOTE | 2018-04-10 12:10 | P.CNS ---
Date of Consult: 04/10/18 Reason for Consult: Respiratory distress Chief Complaint: Acute respiratory failure History of Present Illness: Patient is 57 years of age he had a right shoulder surgery yesterday was driving home suddenly became short of breath and was admitted from the emergency room denies any prior history of cardiopulmonary problems he does continue to smoke chest x-ray abnormal shows bilateral diffuse airspace disease patient is feeling a little better denies any fever chills cough sputum hemoptysis no gross evidence of pulmonary embolism Allergies No Known Allergies Allergy (Unverified 04/10/18 07:27) Home Medications: Amitriptyline HCl 150 mg PO DAILY 04/10/18 Diclofenac Sodium 50 mg PO BID PRN 04/10/18 Docusate Sodium 100 mg PO BID 04/10/18 Duloxetine HCl 60 mg PO BID 04/10/18 Gabapentin 1,200 mg PO TID 04/10/18 Hydrocodone Bit/Acetaminophen [[place] 10-325 Tablet] 1 tab PO Q4H PRN 04/10/18 Lidocaine 5% Patch [Lidoderm 5% Patch*] 1 patch TOP BID 04/10/18 Methocarbamol 750 mg PO QID 04/10/18 Nicotine Polacrilex [Nicotine Gum] 4 mg BC PRN PRN MDD 20 04/10/18 Omeprazole [Prilosec] 20 mg PO DAILY 04/10/18 Pravastatin Sodium 40 mg PO DAILY AFTER SUPPER 04/10/18 Psyllium Seed [Psyllium] 1 tbsp PO BID 04/10/18 Ranitidine [Zantac*] 150 mg PO DAILY 04/10/18 Sildenafil Citrate [Sildenafil] 50 mg PO DAILY PRN 04/10/18 Trazodone [Desyrel*] 150 mg PO DAILY AFTER SUPPER 04/10/18 hydrOXYzine HCl [Atarax] 50 mg PO TID PRN 04/10/18 - Past Medical/Surgical History Diabetic: No -: Hypertension -: Chronic back pain -: Tobacco abuse -: Back surgery -: Showed surgery -: Had surgery -: Rotator cuff surgery - Social History Smoking Status: Current every day smoker Alcohol use: No CD- Drugs: No Caffeine use: Yes Place of Residence: Home Review of Systems 10-point ROS is otherwise unremarkable General: Weakness Respiratory: Cough, Shortness of Breath Physical Examination Temp Pulse Resp BP Pulse Ox 97.6 F 90 22 H 126/82 93 08/10/18 07:17 04/10/18 10:00 04/10/18 10:00 04/10/18 10:00 04/10/18 10:00 General: Alert, Oriented x3 Neck: Supple Respiratory: Crackles/rales (Bilateral crackles) Cardiovascular: No edema, Regular rate/rhythm Gastrointestinal: Normal bowel sounds, Soft and benign Laboratory Data (last 24 hrs) 04/09/18 23:59: PT 10.9, INR 0.92, APTT 29.0 04/09/18 23:59: WBC 17.4 H, Hgb 13.1 L, Hct 38.6 L, Plt Count 221 04/09/18 23:59: Sodium 141, Potassium 4.0, BUN 15, Creatinine 1.00, Glucose 181 H, Magnesium 2.1, Total Bilirubin 0.3, AST 31, ALT 24, Alkaline Phosphatase 52, Amylase 20 L, Lipase 72 L - Problems (1) Acute respiratory failure Current Visit: Yes Status: Acute Plan: Patient is 57 years of age admitted with sudden onset of shortness of breath he has bilateral diffuse acute lung injury differential diagnosis includes pulmonary edema possible acute lung injury may be from his the general anesthesia I recommended trial of Lasix echocardiogram patient was mildly hypoxic hypercapnic start on BiPAP patient better dose of Lasix is feeling better I have ordered some Lasix again and nebulizers to Q 6 I have started him on some Solu-Medrol he probably has underlying COPD active smoker of prior history of coronary artery Qualifiers: Respiratory failure complication: hypoxia and hypercapnia Qualified Code(s) : J96.01 - Acute respiratory failure with hypoxia; J96.02 - Acute respiratory failure with hypercapnia
[2018-04-10] MEDS: RANITIDINE 150 MG TABLET PO SCH (12:46)
[2018-04-10] MEDS: METHYLPREDNISOLONE 40 MG INJ IV SCH ×2 (12:56→16:51)
--- NOTE | 2018-04-10 13:34 | ECHO ---
HEIGHT: 5 ft 8 in WEIGHT: 211 lb 0 oz DATE OF STUDY: 04/10/[address]: 2-DIMENSIONAL: YES M.MODE: YES DOPPLER: YES COLOR FLOW: YES TDS: NO PORTABLE: NO DEFINITY: NO BUBBLE STUDY: NO DIAGNOSIS: EVALUATE CARDIAC FUNCTION CARDIAC HISTORY: CATHERIZATION: NO SURGERY: NO PROSTHETIC VALVE: NO PACEMAKER: NO MEASUREMENTS (cm) DIASTOLIC (NORMALS) SYSTOLIC (NORMALS) IVSd 1.1 (0.6-1.2) LA Diam 4.1 (1.9-4.0) LVEF 54% LVIDd 5.6 (3.5-5.7) LVIDs 4.0 (2.0-3.5) %FS 29% LVPWd 1.1 (0.6-1.2) Ao Diam 3.6 (2.0-3.7) 2 DIMENSIONAL ASSESSMENT: RIGHT ATRIUM: NORMAL LEFT ATRIUM: NORMAL RIGHT VENTRICLE: NORMAL LEFT VENTRICLE: NORMAL TRICUSPID VALVE: NORMAL MITRAL VALVE: NORMAL PULMONIC VALVE: NORMAL AORTIC VALVE: NORMAL PERICARDIAL EFFUSION: NONE AORTIC ROOT: NORMAL LEFT VENTRICULAR WALL MOTION: NORMAL. DOPPLER/COLOR FLOW: MILD TRICUSPID REGURGITATION. MILD PULMONARY HYPERTENSION. ESTIMATED RIGHT VENTRICULAR SYSTOLIC PRESSURE 37 MMHG. COMMENTS: NORMAL 2D ECHOCARDIOGRAM WITH DOPPLER. MILD TRICUSPID REGURGITATION. MILD PULMONARY HYPERTENSION. TECHNOLOGIST: KEILY MA RDCS
[2018-04-10] MEDS ORDERED: GABAPENTIN 400 MG CAP PO SCH (14:00)
--- NOTE | 2018-04-10 14:43 | PN ---
Date of Progress Note: 04/10/2018 Subjective: The patient seen and examined. Chart reviewed and case discussed with RN. The patient is still complaining of some shortness of breath. The patient is concerned about his home medications. Reviewed his home medications with him. Denies any pain except some mild pain in his shoulder from recent surgery. Review of Systems: Negative except as above. Medications: List reviewed. Physical Examination: Vital Signs: Temperature 97.6, heart rate 98, blood pressure 105/74, respirations 20, O2 of 93% on a Venturi mask at 12 L. General: Awake, alert, oriented x3. Some mild respiratory distress. Obese male. BMI 32. CV: S1, S2. Regular rate and rhythm. Peripheral pulses present. Respiratory: Diminished breath sounds bilaterally. No wheezing. The patient is slightly tachypneic. Gastrointestinal: Abdomen is soft, nontender, nondistended. Positive bowel sounds. Extremities: No clubbing, cyanosis, or edema. Musculoskeletal: Right shoulder bandaged with nerve tamika in place. Neurologic: Nonfocal. Laboratory Data: Sodium 140, potassium 3.8, chloride 103, CO2 of 32, BUN 14, creatinine 0.8, glucose 121, lactate 1.7, calcium 8.7. Procalcitonin 0.08. ABG 7.39, pCO2 of 51.5, pO2 of 73.8, bicarb 30. WBC 16, H and H are 12.8 and 37.1, platelets 193, neutrophils 89%, bands 1. Assessment And Plan: A 57-year-old male with: 1. Acute respiratory failure with hypercapnia and hypoxia. The patient on non -rebreather on Ventimask, likely secondary to acute respiratory distress syndrome. We will continue monitoring in ICU setting. Pulmonology has been consulted. 2. Acute respiratory distress syndrome. 3. RUL and RLL pneumonia. Possible gram negative PNA 4. Nicotine dependence with cigarette smoking, counseled. 5. Chronic back pain. Low back pain without sciatica on chronic narcotics. We will resume to avoid withdrawal. 6. Essential hypertension, currently normotensive to hypotensive. 7. Recent shoulder surgery. 8. Elevated D-dimer. CT angio chest does not show any visualization of a gross central pulmonary embolus. Does show moderate bilateral alveolar opacities, which may represent pulmonary edema or pneumonia, right middle lobe and right lower lobe consolidation, may represent atelectasis or pneumonia. Dilated central pulmonary artery may indicate pulmonary arterial hypertension. 9/ Obesity: BMI 32 Plan: Continue monitoring in ICU setting with supplemental oxygen. Continue IV antibiotics. Follow with Pulmonology recommendations. /MARNI Voice ID: [id number] Report ID: [id number] MTDD
[2018-04-10] MEDS ORDERED: TRAZODONE 150 MG PO SCH (17:30)
[2018-04-10] MEDS ORDERED: ATORVASTATIN 10 MG TAB PO SCH (17:30)
[2018-04-10] MEDS ORDERED: TRAZODONE 150 MG TAB PO SCH (17:30)
[2018-04-10] MEDS ORDERED: TRAZODONE 50 MG PO SCH (17:30)
[2018-04-10] MEDS: HYDROCODONE PO PRN ×2 (18:45→23:34)
[2018-04-10] MEDS: APAP PO PRN ×2 (18:45→23:34)
[2018-04-10] MEDS ORDERED: POTASSIUM 25 MEQ EFFERV TAB PO ONE (20:00)
[2018-04-10] MEDS: PSYLLIUM 1 PKT PO SCH ×2 (20:26→21:00)
[2018-04-10] MEDS: ATORVASTATIN 10 MG TAB PO SCH (20:26)
[2018-04-10] MEDS ORDERED: DULOXETINE 30 MG CAP PO SCH (21:00)
[2018-04-10] MEDS ORDERED: AMITRIPTYLINE 50 MG TAB PO SCH (21:00)
[2018-04-10] MEDS: DOCUSATE 100 MG PO SCH (21:00)
[2018-04-10] MEDS ORDERED: DOCUSATE NA 100 MG CAP PO SCH (21:00)
[2018-04-10] MEDS: TRAZODONE 50 MG PO SCH (21:17)
[2018-04-10] MEDS: GABAPENTIN 400 MG PO SCH (21:17)
[2018-04-10] MEDS: AMITRIPTYLINE 150 MG PO SCH (21:18)
[2018-04-10] MEDS: HYDROXYZINE 50 MG PO PRN (21:18)
[2018-04-10] MEDS: DULOXETINE 60 MG PO SCH (21:18)
[2018-04-11] MEDS: METHYLPREDNISOLONE 40 MG INJ IV SCH ×3 (00:28→17:15)
[2018-04-11] MEDS: PIPER/TAZO/NS 3.375gm 3.375 GM/100 ML BAG IVPB SCH ×3 (00:28→17:15)
[2018-04-11] MEDS: MORPHINE 2 MG/ML SYR IV PRN ×5 (01:10→20:15)
[2018-04-11] MEDS: IPRATROPIUM BROM 0.5MG/2.5ML NEB SCH ×4 (03:00→20:32)
[2018-04-11] MEDS: ALBUTEROL 2.5 MG/3 ML NEB SOL NEB SCH ×5 (03:00→20:32)
[2018-04-11] MEDS: APAP PO PRN ×4 (03:46→18:06)
[2018-04-11] MEDS: HYDROCODONE PO PRN ×4 (03:46→18:06)
[2018-04-11 05:04] LABS: Absolute Lymphocytes (CBC) 0.6 K/uL (0.7-4.9); Absolute Monocytes 0.4 K/uL (0.1-1.3); Absolute Neutrophil 13.9 K/uL (1.8-8.0); Basophils % 0.2 % (0-1.3); Hematocrit 37.4 % (39.6-49.0); Lymphocytes % 3.8 % (15.3-44.8); MCH 31.4 pg (27.0-35.0); MPV 6.6 fL (7.6-11.3); Monocytes % 2.8 % (3.3-12.3); RBC Red Blood Cell Count 4.07 M/uL (4.33-5.43)
[2018-04-11 05:25] LABS: ALT/SGPT 20 U/L (12-78); AST/SGOT 22 U/L (15-37); Albumin 3.2 g/dL (3.4-5.0); Alkaline Phosphatase 56 U/L (45-117); BUN Blood Urea Nitrogen 13 mg/dL (7-18); Bicarbonate 31 mmol/L (21-32); Bilirubin Total 0.4 mg/dL (0.2-1.0); Glucose Level 162 mg/dL (74-106); Magnesium 2.1 mg/dL (1.8-2.4); Protein, Total 6.9 g/dL (6.4-8.2); Sodium Level 143 mmol/L (136-145)
[2018-04-11] MEDS: PANTOPRAZOLE 40MG TABLET PO SCH (05:44)
[2018-04-11 06:01] VITALS: BMI 30.1
[2018-04-11] MEDS: VANCOMYCIN 1.75 GM in NA CHLORIDE 0.9% 500 ML IVPB SCH ×2 (09:00→22:40)
[2018-04-11] MEDS: DOCUSATE 100 MG PO SCH ×2 (09:00→20:25)
[2018-04-11] MEDS: PSYLLIUM 1 PKT PO SCH ×2 (09:00→20:25)
[2018-04-11] MEDS: RANITIDINE 150 MG TABLET PO SCH (09:01)
[2018-04-11] MEDS: HYDROXYZINE 50 MG PO PRN ×2 (09:01→15:03)
[2018-04-11] MEDS: ENOXAPARIN 40 MG/0.4 ML SQ SCH (09:01)
[2018-04-11] MEDS: GABAPENTIN 400 MG PO SCH ×3 (09:02→20:21)
[2018-04-11] MEDS: DULOXETINE 60 MG PO SCH ×2 (09:02→20:21)
--- NOTE | 2018-04-11 12:15 | RAD REPORT ---
EXAM DESCRIPTION: RAD - Chest Single View - 04/11/2018 12:42 am CLINICAL HISTORY: PICC Placement COMPARISON: Chest Single View dated 04/10/2018; CHEST SINGLE VIEW dated 08/17/2015; CHEST PA AND LAT 2 VIEW dated 08/06/2012; CHEST PA AND LAT 2 VIEW dated 09/25/2011 FINDINGS: Portable chest was obtained following placement of a left upper extremity PICC line. The c atheter tip projects over the SVC..
--- NOTE | 2018-04-11 12:19 | PN ---
Date of Progress Note: 04/11/2018 Subjective: The patient is seen and examined. Chart reviewed and case discussed with RN. The patient states he feels significantly better. No cough or sputum production. The patient was on CPAP overnight, which he uses at home. Review of Systems: Negative except as above. Medications: List reviewed. Physical Examination: Vital Signs: Temperature 99.3, heart rate 91, blood pressure 112/68, respirations 22, O2 saturation 98% on 3 L via nasal cannula. General: Awake, alert, oriented x3, some mild respiratory distress. Obese male , ill-appearing. BUN 30. CV: S1, S2. No murmurs. Peripheral pulses present. Respiratory: Diminished breath sounds. Some rhonchi heard. Gastrointestinal: Abdomen is soft, nontender, nondistended. Positive bowel sounds. Extremities: No clubbing, cyanosis, or edema. Neurologic: Nonfocal. Laboratory Data: Sodium 143, potassium 4, chloride 106, CO2 31, BUN 13, creatinine 0.8, glucose 162, calcium 8.6, magnesium 2.1. Albumin 3.2. WBC 15, H and H 12.8, 37.4. Platelets 186, neutrophils 93%. Blood cultures, no growth to date. Sputum cultures pending. Chest x-ray, no official report, shows some pulmonary edema unchanged to minimally improved. Improved aeration of right lung base. There is dilution of previous area of focal atelectasis. Persistent elevation of the right hemidiaphragm. Persistent congestion of central pulmonary vessels and bilateral airspace densities. No pleural effusion. Assessment And Plan: 1. Acute respiratory failure. The patient now on nasal cannula. 2. Acute respiratory distress syndrome. 3. Bilateral pneumonia, worse in the right upper lobe and the right lower lobe. Chest x-ray shows some mild improvement, possible gram-negative pneumonia. 4. Nicotine dependence with cigarette smoking, counseled. 5. Chronic back pain. Midline lumbar spine without sciatica. The patient is on chronic narcotics. 6. Essential hypertension. Blood pressure is stable. 7. Recent shoulder surgery and nerve block is now out. Obesity, BMI 32. 8. Obstructive sleep apnea, on CPAP. Plan: Continue IV antibiotics and steroids. The patient's cultures are negative to date. We will continue to monitor. The patient is improving. May be able to step down later today if tolerates nasal cannula. We will discuss further with Pulmonology. SA/MODL Voice ID: [id number] Report ID: [id number] CAYDEN
[2018-04-11] MEDS: AMITRIPTYLINE 150 MG PO SCH (20:20)
[2018-04-11] MEDS: TRAZODONE 50 MG PO SCH (20:21)
[2018-04-11] MEDS: ATORVASTATIN 10 MG TAB PO SCH (20:22)
[2018-04-12] MEDS: APAP PO PRN ×5 (00:06→21:22)
[2018-04-12] MEDS: HYDROCODONE PO PRN ×5 (00:06→21:22)
[2018-04-12] MEDS: PIPER/TAZO/NS 3.375gm 3.375 GM/100 ML BAG IVPB SCH ×2 (00:07→09:00)
[2018-04-12] MEDS: METHYLPREDNISOLONE 40 MG INJ IV SCH ×2 (00:12→09:00)
[2018-04-12] MEDS: IPRATROPIUM BROM 0.5MG/2.5ML NEB SCH ×4 (00:20→19:42)
[2018-04-12] MEDS: ALBUTEROL 2.5 MG/3 ML NEB SOL NEB SCH ×3 (00:22→07:48)
[2018-04-12] MEDS: MORPHINE 2 MG/ML SYR IV PRN (03:57)
[2018-04-12 05:40] LABS: ALT/SGPT 19 U/L (12-78); AST/SGOT 13 U/L (15-37); Alkaline Phosphatase 57 U/L (45-117); BUN Blood Urea Nitrogen 14 mg/dL (7-18); Bicarbonate 31 mmol/L (21-32); Bilirubin Total 0.5 mg/dL (0.2-1.0); Glucose Level 164 mg/dL (74-106); Potassium 4.2 mmol/L (3.5-5.1); Protein, Total 6.8 g/dL (6.4-8.2); Sodium Level 141 mmol/L (136-145)
[2018-04-12] MEDS: PANTOPRAZOLE 40MG TABLET PO SCH (06:29)
[2018-04-12] MEDS: VANCOMYCIN 1.75 GM in NA CHLORIDE 0.9% 500 ML IVPB SCH (09:00)
[2018-04-12] MEDS: DOCUSATE 100 MG PO SCH ×2 (09:00→21:00)
[2018-04-12] MEDS: PSYLLIUM 1 PKT PO SCH ×2 (09:00→21:00)
[2018-04-12] MEDS ORDERED: ALBUTEROL 2.5 MG/3 ML NEB SOL NEB PRN (09:29)
--- NOTE | 2018-04-12 09:34 | P.PN ---
Subjective Date of Service: 04/12/18 Chief Complaint: Acute lung injury Subjective: Improving (Patient is doing much better no new complaints no fever chills sputum shows Klebsiella) Review of Systems Unremarkable Physical Examination - Vital Signs Temperature: 97.9 F Blood Pressure: 137/92 Pulse: 93 Respirations: 18 Pulse Ox (%): 96 - Physical Exam General: Alert, Oriented x3 Respiratory: Crackles/rales (Patient still has crackles left worse than the right) Cardiovascular: No edema, Normal S1 S2 Assessment & Plan - Problems (Diagnosis) (1) Acute respiratory failure Current Visit: Yes Status: Acute Plan: Patient is 57 years of age admitted with acute lung injury bilateral infiltrates sputum shows Klebsiella pneumonia patient's white count is declining although still elevated room-air sat is 93% echocardiogram is normal/ change to p.o. levofloxacin room-air sat is 93% continue with low-dose prednisone Dc Solu-Medrol Lasix repeat chest x-ray PA and lateral possible discharge in 1 or 2 days follow with me in 2 weeks he can go home on prednisone 10 mg twice a day for 7 days continue with levofloxacin for another 7 Qualifiers: Respiratory failure complication: hypoxia and hypercapnia Qualified Code(s) : J96.01 - Acute respiratory failure with hypoxia; J96.02 - Acute respiratory failure with hypercapnia
[2018-04-12] MEDS: RANITIDINE 150 MG TABLET PO SCH (09:44)
[2018-04-12] MEDS: DULOXETINE 60 MG PO SCH ×2 (09:44→21:24)
[2018-04-12] MEDS: GABAPENTIN 400 MG PO SCH ×3 (09:44→21:22)
[2018-04-12] MEDS: ENOXAPARIN 40 MG/0.4 ML SQ SCH (09:50)
[2018-04-12] MEDS: levoFLOXacin 500 MG TAB PO SCH (10:16)
[2018-04-12] MEDS: FUROSEMIDE 20 MG TABLET PO SCH (10:16)
[2018-04-12] MEDS: HYDROXYZINE 50 MG PO PRN ×2 (10:16→19:29)
[2018-04-12] MEDS: predniSONE 20 MG TAB PO SCH ×2 (11:03→21:21)
--- NOTE | 2018-04-12 13:37 | DS ---
Date of Discharge: 04/12/2018 Consultants: Dr. Drummond with Pulmonology. Admitting Diagnoses: 1. Acute respiratory failure with hypoxia. 2. Acute respiratory distress syndrome. 3. Bilateral pneumonia. 4. Nicotine dependence with cigarette smoking. 5. Chronic back pain, low back without sciatica. 6. Essential hypertension. Discharge Diagnoses: 1. Acute respiratory failure with hypoxia, resolved, now on room air. 2. Acute respiratory distress syndrome, resolving. 3. Bilateral pneumonia, right upper lobe and right lower lobe. Chest x-ray shows improvement. Possible gram-negative pneumonia. 4. Nicotine dependence with cigarette smoking, counseled. 5. Chronic back pain, midline without sciatica. 6. Essential hypertension. 7. Recent right shoulder surgery. 8. Obesity, BMI 32. 9. Obstructive sleep apnea, on CPAP. Hospital Course: The patient is a 57-year-old male who comes in with acute respiratory failure. The patient placed on non-rebreather mask. His O2 saturations were 74% on admission, had to be placed on BiPAP. The patient was found to have leukocytosis 17% with bandemia, normal procalcitonin. D-dimer was elevated. CT angio was done, which showed no PE. Did show patchy infiltrates consistent with pneumonia in the right upper and lower lobes. The patient was thought to be developing ARDS. He was admitted to the ICU. Cultures were obtained. Blood cultures remained negative. However, sputum cultures did grow out Klebsiella pneumonia. The patient was continued on broad- spectrum IV antibiotics. He was seen by Dr. Drummond with Pulmonology. The patient did well over the course of the hospital stay. His respiratory function improved. His BiPAP was able to be weaned off and doing well on nasal cannula. He was stepped down from the ICU, able to ambulate. His symptoms improved. Cough and sputum production were improving. The patient did have a nerve block in place from his recent shoulder surgery, which was removed. Likely, the patient had lasting effects of anesthesia, possible pneumonia felt after postanesthesia. Regardless, the patient's condition continued to improve. White count trended down. ABG showed improvement. The patient was then cleared for discharge and was sent home in stable condition. Activity: As tolerated. No strenuous activity. No driving or operating heavy machinery while on narcotics. Return to ER for worsening condition. Followup: Follow up with primary care physician in 2-3 days. Follow up with cereal supervisor, Dr. Drummond in 2 weeks. Return to ER for worsening condition. Total time spent discharging the patient was 41 minutes. Physical Examination: General: Awake, alert, oriented. No acute distress. CV: S1, S2. No murmurs. Respiratory: Moving air well bilaterally. Gastrointestinal: Abdomen is soft, nontender, nondistended. Positive bowel sounds. Extremities: No clubbing, cyanosis, edema. Neurologic: Nonfocal. Musculoskeletal: Right shoulder bandaged. The patient instructed to have repeat chest x-ray in 1-2 weeks. ADDENDUM: Patients room air saturation after ambulation dropped to 88%. Discharge held pending further evaluation. SASHA Voice ID: [id number] Report ID: [id number] MTDD
--- NOTE | 2018-04-12 17:45 | RAD REPORT ---
EXAM DESCRIPTION: RAD - Chest Pa And Lat (2 Views) - 04/12/2018 5:32 pm CLINICAL HISTORY: Acute lung injury COMPARISON: April 11, April 10 TECHNIQUE: PA and lateral views of the chest were obtained. FINDINGS: The lungs are show greater lung volume. Lung parenchymal opacification has shown significa nt improvement from prior imaging. There remains interstitial and alveolar opacities. PICC line is un changed. Heart size is normal and central vasculature is within normal limits. No pleural effusion or pneumothorax seen. No acute bony finding noted. No aortic abnormality. IMPRESSION: Partial clearing of the bilateral interstitial and alveolar opacification since prior da y.
[2018-04-12] MEDS: ATORVASTATIN 10 MG TAB PO SCH (21:21)
[2018-04-12] MEDS: TRAZODONE 50 MG PO SCH (21:23)
[2018-04-12] MEDS: AMITRIPTYLINE 150 MG PO SCH (21:25)
[2018-04-13] MEDS: IPRATROPIUM BROM 0.5MG/2.5ML NEB SCH ×2 (01:58→08:21)
[2018-04-13] MEDS: APAP PO PRN ×2 (05:07→09:43)
[2018-04-13] MEDS: HYDROCODONE PO PRN ×2 (05:07→09:43)
[2018-04-13 05:26] LABS: Absolute Lymphocytes (CBC) 1.3 K/uL (0.7-4.9); Absolute Monocytes 0.4 K/uL (0.1-1.3); Absolute Neutrophil 7.7 K/uL (1.8-8.0); Basophils % 0.2 % (0-1.3); Eosinophils % 0.7 % (0-4.4); Hematocrit 37.8 % (39.6-49.0); Lymphocytes % 13.6 % (15.3-44.8); MCH 31.4 pg (27.0-35.0); MCV 90.9 fL (80-100); MPV 6.6 fL (7.6-11.3); Monocytes % 4.4 % (3.3-12.3); RBC Red Blood Cell Count 4.16 M/uL (4.33-5.43)
[2018-04-13 05:51] LABS: ALT/SGPT 27 U/L (12-78); AST/SGOT 12 U/L (15-37); Albumin 3.1 g/dL (3.4-5.0); Alkaline Phosphatase 57 U/L (45-117); BUN Blood Urea Nitrogen 19 mg/dL (7-18); Bicarbonate 32 mmol/L (21-32); Bilirubin Total 0.3 mg/dL (0.2-1.0); Glucose Level 128 mg/dL (74-106); Magnesium 2.3 mg/dL (1.8-2.4); Protein, Total 6.9 g/dL (6.4-8.2); Sodium Level 141 mmol/L (136-145)
[2018-04-13] MEDS: PANTOPRAZOLE 40MG TABLET PO SCH (06:12)
[2018-04-13] MEDS: DOCUSATE 100 MG PO SCH (09:00)
[2018-04-13] MEDS: PSYLLIUM 1 PKT PO SCH (09:00)
[2018-04-13] MEDS: predniSONE 20 MG TAB PO SCH (09:41)
[2018-04-13] MEDS: FUROSEMIDE 20 MG TABLET PO SCH (09:41)
[2018-04-13] MEDS: levoFLOXacin 500 MG TAB PO SCH (09:42)
[2018-04-13] MEDS: RANITIDINE 150 MG TABLET PO SCH (09:42)
[2018-04-13] MEDS: ENOXAPARIN 40 MG/0.4 ML SQ SCH (09:42)
[2018-04-13] MEDS: HYDROXYZINE 50 MG PO PRN (09:43)
[2018-04-13] MEDS: GABAPENTIN 400 MG PO SCH (09:44)
[2018-04-13] MEDS: DULOXETINE 60 MG PO SCH (09:44)
[2018-04-13 09:45] VITALS: BP 134/76
[2018-04-13 10:40] VITALS: O2SAT 94
[2018-04-13 13:24] VITALS: TEMP 97.1
--- NOTE | 2018-04-13 14:51 | PN ---
Date of Progress Note: 04/13/2018 Subjective: The patient seen and examined. Chart reviewed and case discussed with RN and Dr. Zandra iraheta. The patient was being discharged yesterday. However, after ambulation, his O2 saturations dropp ed to the high 80s. Therefore, discharge was held. The patient did well overnight. He was now off oxygen. Review of Systems: Negative except as above. Medications: List reviewed. Physical Examination: Vital Signs: Temperature 97.1, heart rate 80, blood pressure 134/76, respirations 18, O2 of 94% on r oom air. General: Awake, alert, oriented x3. No acute distress. CV: S1, S2. No murmurs. Respiratory: Moving air well bilaterally. No wheezing. No stridor. No use of accessory muscles. Gastrointestinal: Abdomen is soft, nontender, nondistended. Positive bowel sounds. Extremities: No clubbing, cyanosis, edema. Musculoskeletal: Right shoulder bandaged. Limited range of motion. Neurologic: Nonfocal. Laboratory Data: Sodium 141, potassium 4, chloride 104, CO2 of 32, BUN 19, creatinine 0.8, glucose 1 28, calcium 9, albumin 3.1. WBC 9.5, H and H of 13.1 and 37.8, platelets 224, neutrophils 81%. Assessment And Plan: A 57-year-old male with: 1.Acute respiratory failure with hypoxia, resolved. 2.Acute respiratory distress syndrome, resolved. 3.Bilateral pneumonia, right upper lobe and right lower lobe, improved, secondary to Klebsiella pneu monia. We will finish off course of Levaquin. 4.Nicotine dependence with cigarette smoking, counseled. 5.Chronic back pain, midline, without sciatica. 6.Essential hypertension. 7.Obesity, BMI of 32. 8.Recent right shoulder surgery. The patient to follow up with Orthopedic surgeon at the [facility] for wou nd check. 9.Obstructive sleep apnea, on CPAP. Plan: Discharge home. /MARNI Voice ID: [id number] Report ID: [id number]
== END 2018-04-13 11:10 | disposition home or self-care (01) | DRG 177 ==
LOC: ER 23:51 → ERHOLD 04-10 03:06 → 3RD-ICU 04-10 07:52 → 2ND 04-11 12:21 → 4TH 04-11 12:32
PROVIDERS: ADMIT Internal Medicine; ATTEND Family Medicine
PROC: 5A09357 Assistance with Respiratory Ventilation, Less than 24 Consecutive Hours, Continuous Positive Airway Pressure (ICD-10-PCS; principal; 2018-04-10)
PROC: 02HV33Z Insertion of Infusion Device into Superior Vena Cava, Percutaneous Approach (ICD-10-PCS; 2018-04-11)
DX: J15.0 Pneumonia due to Klebsiella pneumoniae (principal); J96.01 Acute respiratory failure with hypoxia; J96.02 Acute respiratory failure with hypercapnia; J80 Acute respiratory distress syndrome; J81.1 Chronic pulmonary edema; F17.210 Nicotine dependence, cigarettes, uncomplicated; M54.89 Other dorsalgia; I10 Essential (primary) hypertension; E66.9 Obesity, unspecified; Z68.32 Body mass index [BMI] 32.0-32.9, adult; G47.33 Obstructive sleep apnea (adult) (pediatric); Z98.890 Other specified postprocedural states
CPT/HCPCS: 36415; 51702; 71045; 71046; 71275; 80048; 80053; 80076; 80202; 81003; 82150; 82550; 82553; 82805; 83605; 83690; 83735; 83880; 84145; 84484; 85025; 85379; 85610; 85730; 87040; 87070; 87077; 87186; 87205; 93005; 93306; 94640; 94660; 96374; 96375; 99285; J1650; J1940; J2270; J2405; J2543; J2920; J3370; J7030; J7512; Q9967

== ENCOUNTER 2019-01-22 21:18 | Emergency (ER) | payer OTHER ==
[2019-01-22] MEDS ORDERED: LIDOCAINE 1% MPF 5 ML VIAL ONE (22:08)
[2019-01-22] MEDS ORDERED: LIDOCAINE 1% W/EPI 1:100,000 MDV 50 ML VIAL ONE (22:31)
--- NOTE | 2019-01-22 23:05 | EDPHYS ---
Physician Documentation [facility] Name: Kj Ortiz Sr Age: 58 yrs Sex: Male : 1960 Arrival Date: 01/22/2019 Time: 21:24 Bed 27 Private MD: ED Physician Vazquez Penn HPI: 01/22 22:10 This 58 yrs old Male presents to ER via Ambulatory with complaints of cp Laceration To Hand. 22:10 The patient has a laceration occurred at home, and there are no complicating factors. cp 22:10 The laceration(s) is(are) located on the left hand. Onset: The symptoms/episode cp began/occurred just prior to arrival. Associated signs and symptoms: Pertinent negatives: heavy bleeding, numbness distal to injury, suspected foreign body. Patient was using drum liang tool. Historical: - Allergies: 21:40 No Known Allergies; lp1 - Home Meds: 21:40 amitriptyline 150 mg Oral tab 1 tab once daily [Active]; diclofenac sodium 50 mg Oral lp1 TbEC 1 tab 2 times per day [Active]; docusate sodium 100 mg Oral tab 1 tab 2 times per day [Active]; duloxetine 60 mg Oral cpDR 1 cap twice a day [Active]; gabapentin 1200 mg Oral 3 times per day [Active]; hydroxyzine HCl 50 mg Oral tab 1 tab 3 times daily [Active]; lidocaine 5 % Topical ptmd 1 patch twice a day [Active]; methocarbamol 750 mg Oral tab 1 tab four times a day [Active]; [place] 10-325 mg Oral tab 1 tab every 4 hours [Active]; omeprazole 20 mg Oral TbEC daily [Active]; pravastatin 40 mg Oral tab 1 tab once daily [Active]; atorvastatin oral oral [Active]; psyllium Oral [Active]; ranitidine HCl 150 mg Oral tab 1 tab nightly [Active]; trazodone 150 mg Oral tab 1 tab nightly [Active]; meloxicam oral oral [Active]; - PMHx: 21:40 Hyperlipidemia; Chronic pain; Arthritis; lp1 - PSHx: 21:40 back surgery; lp1 - Immunization history:: Adult Immunizations up to date, Last tetanus immunization: up to date. - Social history:: Smoking status: Patient uses tobacco products, smokes one-half pack cigarettes per day. - Ebola Screening: : No symptoms or risks identified at this time. ROS: 22:15 Eyes: Negative for injury, pain, redness, and discharge. cp 22:15 Constitutional: Negative for body aches, chills, fever, poor PO intake. 22:15 Skin: Positive for laceration(s), of the ledesma aspect left hand. cp 22:15 Neuro: Negative for weakness. 22:15 All other systems are negative. Exam: 22:20 Constitutional: The patient appears in no acute distress, alert, awake, comfortable, cp well developed, well nourished. 22:20 Head/Face: Normocephalic, atraumatic. cp 22:20 Musculoskeletal/extremity: Perfusion: the extremity is normally perfused throughout, Sensation intact. Tendon exam: specific tendon testing normal through active and passive range of motion 22:20 Skin: injury, laceration(s), the wound is approximately 2 cm(s), of the ledesma side left hyper thenar eminence, that can be described as clean, no foreign body, linear, with mild bleeding. Vital Signs: 21:37 BP 130 / 83; Pulse 107; Resp 18; Temp 98.5(O); Pulse Ox 95% on R/A; Weight 96.62 kg; lp1 Height 5 ft. 8 in. (172.72 cm); Pain 0/10; 23:24 BP 127 / 76; Pulse 89; Resp 18; Temp 99; Pulse Ox 97% ; rv 21:37 Body Mass Index 32.39 (96.62 kg, 172.72 cm) lp1 Laceration: 22:58 Wound Repair of 2cm ( 0.8in ) subcutaneous laceration to hypertehar eminence of left cp hand. Linear shaped.. Distal neuro/vascular/tendon intact. Anesthesia: Wound infiltrated with 3 mls of 1% lidocaine w/ Epi. Wound prep: Moderate cleansing by me, Wound irrigation by me. Skin closed with 3 4-0 Prolene using interrupted sutures and sterile technique. Dressed with Bacitracin, 4x4's, Kerlix. Patient tolerated well. MDM: 21:59 Patient medically screened. cp 23:02 Data reviewed: vital signs, nurses notes, and as a result, I will discharge patient. cp 23:02 Differential diagnosis: superficial laceration, tendon injury, vascular injury. cp Counseling: I had a detailed discussion with the patient and/or guardian regarding: the historical points, exam findings, and any diagnostic results supporting the discharge/admit diagnosis, to return to the emergency department if symptoms worsen or persist or if there are any questions or concerns that arise at home. Response to treatment: the patient's symptoms have markedly improved after treatment, and as a result, I will discharge patient. 01/22 22:11 Order name: Prolene, Sutures; Complete Time: 22:13 cp 01/22 22:11 Order name: Dressing - Wound; Complete Time: 22:13 cp 01/22 22:11 Order name: Gloves, Sterile; Complete Time: 22:13 cp 01/22 22:11 Order name: Setup Suture Tray; Complete Time: 22:13 cp 01/22 22:11 Order name: Wound Care: please clean and irrigate wound; Complete Time: 22:13 cp Administered Medications: No medications were administered Disposition: 01/23 02:43 Co-signature as Attending Physician, Vazquez Penn MD. hong Disposition: 01/22/19 23:03 Discharged to Home. Impression: Laceration without foreign body of left hand. - Condition is Stable. - Discharge Instructions: Laceration Care, Adult. - Medication Reconciliation Form, Thank You Letter, Antibiotic Education, Prescription Opioid Use form. - Follow up: Private Physician; When: 7 - 10 days; Reason: Staple/Suture removal. - Problem is new. - Symptoms have improved. Signatures: Vazquez Penn MD MD pkl Esme Mckeon RN RN lp1 Santiago Goldberg PA PA cp Vicente, Ronaldo, RN RN rv Corrections: (The following items were deleted from the chart) 01/22 23:26 23:03 01/22/2019 23:03 Discharged to Home. Impression: Laceration without foreign body rv of left hand. Condition is Stable. Forms are Medication Reconciliation Form, Thank You Letter, Antibiotic Education, Prescription Opioid Use. Follow up: Private Physician; When: 7 - 10 days; Reason: Staple/Suture removal. Problem is new. Symptoms have improved. cp
--- NOTE | 2019-01-22 23:05 | ER ---
Nurse's Notes [facility] Name: Kj Ortiz Sr Age: 58 yrs Sex: Male : 1960 Arrival Date: 01/22/2019 Time: 21:24 Bed 27 Private MD: Diagnosis: Laceration without foreign body of left hand Presentation: 01/22 21:35 Presenting complaint: Patient states: Laceration to left palm from using rotary tool; lp1 no active bleeding; cleaned with water and soap [employer]. Transition of care: patient was not received from another setting of care. Complicating Factors: There are no complicating factors for this patient. Onset of symptoms was January 22, 2019 at 20:30. Risk Assessment: Do you want to hurt yourself or someone else? Patient reports no desire to harm self or others. Initial Sepsis Screen: Does the patient meet any 2 criteria? No. Patient's initial sepsis screen is negative. Does the patient have a suspected source of infection? No. Patient's initial sepsis screen is negative. Care prior to arrival: None. 21:35 Method Of Arrival: Ambulatory lp1 21:35 Acuity: KRISTAN 4 lp1 Historical: - Allergies: 21:40 No Known Allergies; lp1 - Home Meds: 21:40 amitriptyline 150 mg Oral tab 1 tab once daily [Active]; diclofenac sodium 50 mg Oral lp1 TbEC 1 tab 2 times per day [Active]; docusate sodium 100 mg Oral tab 1 tab 2 times per day [Active]; duloxetine 60 mg Oral cpDR 1 cap twice a day [Active]; gabapentin 1200 mg Oral 3 times per day [Active]; hydroxyzine HCl 50 mg Oral tab 1 tab 3 times daily [Active]; lidocaine 5 % Topical ptmd 1 patch twice a day [Active]; methocarbamol 750 mg Oral tab 1 tab four times a day [Active]; [place] 10-325 mg Oral tab 1 tab every 4 hours [Active]; omeprazole 20 mg Oral TbEC daily [Active]; pravastatin 40 mg Oral tab 1 tab once daily [Active]; atorvastatin oral oral [Active]; psyllium Oral [Active]; ranitidine HCl 150 mg Oral tab 1 tab nightly [Active]; trazodone 150 mg Oral tab 1 tab nightly [Active]; meloxicam oral oral [Active]; - PMHx: 21:40 Hyperlipidemia; Chronic pain; Arthritis; lp1 - PSHx: 21:40 back surgery; lp1 - Immunization history:: Adult Immunizations up to date, Last tetanus immunization: up to date. - Social history:: Smoking status: Patient uses tobacco products, smokes one-half pack cigarettes per day. - Ebola Screening: : No symptoms or risks identified at this time. Screenin:12 Abuse screen: Denies threats or abuse. Denies injuries from another. Nutritional rv screening: No deficits noted. Tuberculosis screening: No symptoms or risk factors identified. Fall Risk None identified. Assessment: 22:10 General: Appears in no apparent distress. comfortable, Behavior is calm, cooperative. rv Pain: Complains of pain in left hand. Neuro: Level of Consciousness is awake, alert, obeys commands, Oriented to person, place, time, situation. Cardiovascular: Patient's skin is warm and dry. Respiratory: Airway is patent. GI: No signs and/or symptoms were reported involving the gastrointestinal system. : No signs and/or symptoms were reported regarding the genitourinary system. EENT: No signs and/or symptoms were reported regarding the EENT system. Derm: Skin is intact. Musculoskeletal: No signs and/or symptoms reported regarding the musculoskeletal system. Injury Description: Laceration sustained to Left first web space is clean, 0.5 to 2.5 cm long, not bleeding. Vital Signs: 21:37 BP 130 / 83; Pulse 107; Resp 18; Temp 98.5(O); Pulse Ox 95% on R/A; Weight 96.62 kg; lp1 Height 5 ft. 8 in. (172.72 cm); Pain 0/10; 23:24 BP 127 / 76; Pulse 89; Resp 18; Temp 99; Pulse Ox 97% ; rv 21:37 Body Mass Index 32.39 (96.62 kg, 172.72 cm) lp1 ED Course: 21:24 Patient arrived in ED. ds1 21:37 Triage completed. lp1 21:37 Arm band placed on right wrist. lp1 21:46 Sukhdev Hilario RN is Primary Nurse. rv 21:59 Santiago Goldberg PA is PHCP. cp 21:59 Vazquez Penn MD is Attending Physician. cp 22:11 Wound care: to laceration located on left hand was cleaned with Hibiclens, irrigated rv with normal saline, dressed with 4X4s, Patient tolerated well. 22:13 Patient has correct armband on for positive identification. Bed in low position. Call rv light in reach. Side rails up X 1. Pulse ox on. NIBP on. 23:25 Assist provider with laceration repair on left hand that was 2.5 cm. or less using rv sutures. Set up tray. Performed by Santiago GOMEZ Dressed with 4X4s, Patient tolerated well. Patient did not have IV access during this emergency room visit. Administered Medications: No medications were administered Outcome: 23:03 Discharge ordered by . denae 23:25 Discharged to home ambulatory. rv 23:25 Condition: improved 23:25 Discharge instructions given to patient, Instructed on discharge instructions, follow up and referral plans. wound care, Demonstrated understanding of instructions, follow-up care, wound care. 23:26 Patient left the ED. rv Signatures: Yulisa Woody ds1 Esme Mckeon RN RN lp1 Santiago Goldberg PA PA cp Vicente, Ronaldo, RN RN rv
[2019-01-23 00:49] VITALS: BP 127/76; TEMP 99; O2SAT 97
== END 2019-01-22 23:26 | disposition home or self-care (01) ==
LOC: ER 21:18
PROC: 0JQK0ZZ Repair Left Hand Subcutaneous Tissue and Fascia, Open Approach (ICD-10-PCS; principal; 2019-01-22)
DX: S61.412A Laceration without foreign body of left hand, initial encounter (principal); W27.8XXA Contact with other nonpowered hand tool, initial encounter; Y93.9 Activity, unspecified; Y92.009 Unspecified place in unspecified non-institutional (private) residence as the place of occurrence of the external cause; E78.5 Hyperlipidemia, unspecified; F17.210 Nicotine dependence, cigarettes, uncomplicated
CPT/HCPCS: 99284